=== PATIENT | female | born 2000 | race Caucasian/White ===

== ENCOUNTER 2022-05-15 10:57 | Emergency (ER) | payer SELFPAY ==
[2022-05-15] MEDS ORDERED: Insulin Lispro 100 Unit/ML 3 ML KwikPen SUBCUT ONE (10:58)
[2022-05-15] MEDS ORDERED: LORazepam 1 MG Tab PO ONE (11:03)
[2022-05-15] MEDS ORDERED: Sodium Chloride 0.9% 10 ML Syringe FLUSH PRN (11:40)
[2022-05-15 11:54] LABS: PCO2 VENOUS,POC 15 mmHg (41-51); PH VENOUS,POC 6.69 pH Units (7.32-7.43)
[2022-05-15 11:55] LABS: BASE EXCESS VENOUS,POC < -30 mmol/L (-2 - 3+)
[2022-05-15] MEDS ORDERED: Ondansetron 4 MG/2 ML SDV IVPUSH ONE (11:55)
[2022-05-15 11:59] LABS: ESTIMATED GFR 23 mL/min (>60)
[2022-05-15] MEDS: Sodium Chloride 0.9% 1,000 ML IV SCH ×2 (12:00→13:01)
[2022-05-15] MEDS ORDERED: 50% Dextrose in Water 50 ML Syringe IVPUSH PRN ×2 (12:10→14:04)
[2022-05-15] MEDS ORDERED: Insulin Lispro 100 Unit/ML 3 ML KwikPen SUBCUT STA (12:10)
[2022-05-15] MEDS ORDERED: Glucagon,Human Recombinant 1 MG Vial IM PRN ×2 (12:10→14:04)
[2022-05-15 13:39] LABS: ESTIMATED GFR 26 mL/min (>60)
[2022-05-15] MEDS ORDERED: Insulin Regular, Human 100 Units/ML 3 ML Vial IV ONE (14:04)
[2022-05-15] MEDS ORDERED: Sodium Chloride 0.9% 1,000 ML IV SCH ×2 (14:15→15:10)
[2022-05-15] MEDS ORDERED: Insulin Regular, Human 10 UNIT in Dextrose 10% in Water 499.9 ML IV SCH ×2 (14:30)
[2022-05-15] MEDS ORDERED: Insulin Regular in 0.9 % NACL 100 ML ONE (14:53)
[2022-05-15 15:02] LABS: BASE EXCESS VENOUS,POC -30 mmol/L (-2 - 3+); PCO2 VENOUS,POC 23 mmHg (41-51); PH VENOUS,POC 6.72 pH Units (7.32-7.43)
[2022-05-15 15:07] LABS: ESTIMATED GFR 27 mL/min (>60)
[2022-05-15] MEDS ORDERED: Insulin Regular in 0.9 % NACL 100 ML IV SCH (15:15)
[2022-05-15] MEDS ORDERED: Sodium Bicarbonate 8.4% 50 MEQ/50 ML Syringe IVPUSH ONE (15:29)
[2022-05-15] MEDS: Sodium Bicarbonate 8.4% 50 MEQ/50 ML Syringe IVPUSH STA ×2 (15:45→15:50)
[2022-05-15 16:32] LABS: BASE EXCESS VENOUS,POC -29 mmol/L (-2 - 3+); PCO2 VENOUS,POC 20 mmHg (41-51); PH VENOUS,POC 6.88 pH Units (7.32-7.43)
[2022-05-15 16:44] LABS: ESTIMATED GFR 28 mL/min (>60)
== END 2022-05-15 16:30 ==
LOC: FB.ED 10:57
DX: E10.10 Type 1 diabetes mellitus with ketoacidosis without coma (principal); E86.0 Dehydration; R77.8 Other specified abnormalities of plasma proteins; Z88.1 Allergy status to other antibiotic agents
CPT/HCPCS: 36415; 71045; 80048; 80053; 82947; 84484; 85025; 93005; 96361; 96374; 96375; 99285; A9270; J1815; J2405; J7030